=== PATIENT | male | born 1955 | race Caucasian/White ===

== ENCOUNTER 2017-09-28 09:11 | Emergency (ER) | payer SELFPAY ==
[~2017-09-28] VITALS: Ht 177.8 cm; Wt 94.3 kg
[~2017-09-28 09:11] MED LIST: BAYER GENUINE325 MG; CIPROFLOXACIN500 MG PO; FISH OIL 10001000 MG; LIPITOR40 MG; LISINOPRIL40 MG; MOTRIN800 MG PO; NEXIUM40 MG; PYRIDIUM200 MG PO
[2017-09-28] MEDS ORDERED: CYCLOBENZAPRINE5 M3 PO (11:02)
[2017-09-28] MEDS ORDERED: NORCO 5-325 TA1 EACH PO (11:02)
[2017-09-28] MEDS ORDERED: NAPROSYN500 MG PO (11:02)
== END 2017-09-28 11:49 | disposition home or self-care (01) ==
LOC: ED 09:11
DX: S16.1XXA Strain of muscle, fascia and tendon at neck level, initial encounter (principal); S20.229A Contusion of unspecified back wall of thorax, initial encounter; M62.838 Other muscle spasm; Z79.82 Long term (current) use of aspirin; X58.XXXA Exposure to other specified factors, initial encounter; Y93.89 Activity, other specified; Y92.89 Other specified places as the place of occurrence of the external cause; Y99.8 Other external cause status

== ENCOUNTER 2018-04-10 21:32 | Emergency (ER) | payer BC ==
[~2018-04-10] VITALS: Ht 177.8 cm; Wt 93.0 kg
[~2018-04-10 21:32] MED LIST changes: +CYCLOBENZAPRINE5 M3 PO; +NAPROSYN500 MG PO; +NORCO 5-325 TA1 EACH PO
[2018-04-10] MEDS ORDERED: DOXYCYCLINE HY100 M3 PO (21:53)
== END 2018-04-10 22:01 | disposition home or self-care (01) ==
LOC: ED 21:32
DX: S70.362A Insect bite (nonvenomous), left thigh, initial encounter (principal); M62.838 Other muscle spasm; W57.XXXA Bitten or stung by nonvenomous insect and other nonvenomous arthropods, initial encounter; Y93.89 Activity, other specified; Y92.89 Other specified places as the place of occurrence of the external cause; Y99.9 Unspecified external cause status

== ENCOUNTER 2024-05-10 21:45 | Emergency (ER) | payer MEDICARE ==
[~2024-05-10] VITALS: Ht 177.8 cm; Wt 88.5 kg
[~2024-05-10 21:45] MED LIST changes: +DOXYCYCLINE HY100 M3 PO
[2024-05-10] MEDS ORDERED: ALLOPURINOL100 MG PO (21:55)
[2024-05-10] MEDS ORDERED: FAMOTIDINE40 MG PO (21:55)
[2024-05-10] MEDS ORDERED: PREDNISONE20 M1 PO (22:09)
[2024-05-10] MEDS ORDERED: diphenhydrAMINE hydrochloride 25 MG CAP PO ONE (22:10)
[2024-05-10] MEDS ORDERED: methylPREDNISolone sod succ 125 MG VIAL IM ONE (22:10)
== END 2024-05-10 22:16 | disposition home or self-care (01) ==
LOC: ED 21:45
DX: T63.461A Toxic effect of venom of wasps, accidental (unintentional), initial encounter (principal); L50.9 Urticaria, unspecified; Z79.82 Long term (current) use of aspirin; Z79.899 Other long term (current) drug therapy; Y92.89 Other specified places as the place of occurrence of the external cause